=== PATIENT | female | born 1980 | race Caucasian/White ===

== ENCOUNTER 2017-11-29 22:33 | Emergency (ER) | payer SELFPAY ==
[~2017-11-29] VITALS: Ht 162.6 cm; Wt 62.6 kg
[2017-11-29 22:37] VITALS: Ht 162.6 cm; Wt 62.6 kg
[2017-11-29 23:16] LABS: BASOPHIL % 1.2 % (0-2); PLATELET COUNT 190 x10^3mcL (130-400); RED CELL DISTRIBUTION WIDTH 16.6 % (11.5-14.5)
[2017-11-29 23:36] LABS: CALCIUM 8.2 mg/dL (8.5-10.1); CARBON DIOXIDE 24.3 mmol/L (21-32); CHLORIDE SERUM 106 mmol/L (98-107); GFR1 > 60 mL/min; GLUCOSE SERUM 94 mg/dL (74-106); POTASSIUM SERUM 3.3 mmol/L (3.5-5.1); SODIUM SERUM 142 mmol/L (136-145)
[2017-11-29 23:49] LABS: ALBUMIN 3.5 g/dL (3.4-5.0); ALKALINE PHOSPHATASE 90 U/L (46-116); ALT/SGPT 52 U/L (14-59); AST/SGOT 46 U/L (15-37); BILIRUBIN TOTAL 0.2 mg/dL (0.20-1.00); T4(THYROXINE) 7.1 ug/dL (4.7-13.3); TOTAL PROTEIN, SERUM 7.3 g/dL (6.4-8.2)
[2017-11-30 00:36] VITALS: BP 107/70
== END 2017-11-30 00:52 | disposition home or self-care (01) ==
LOC: ED 22:33
PROVIDERS: Emergency Medicine
DX: I47.1 Supraventricular tachycardia (principal); D50.9 Iron deficiency anemia, unspecified; E87.6 Hypokalemia; E86.0 Dehydration; K21.9 Gastro-esophageal reflux disease without esophagitis
CPT/HCPCS: 83880

== ENCOUNTER 2018-01-13 11:05 | Emergency (ER) | payer MEDICAID ==
[~2018-01-13] VITALS: Ht 165.1 cm; Wt 59.0 kg
[2018-01-13 11:14] VITALS: Ht 165.1 cm; Wt 59.0 kg
[2018-01-13 12:12] LABS: PLATELET COUNT 207 x10^3mcL (130-400)
[2018-01-13 12:14] LABS: RED CELL DISTRIBUTION WIDTH 16.2 % (11.5-14.5); rbc morphology (normal/abnorm) ABNORMAL (NORMAL)
[2018-01-13 12:30] LABS: CALCIUM 8.9 mg/dL (8.5-10.1); CHLORIDE SERUM 106 mmol/L (98-107); CREATININE SERUM 0.9 mg/dL (0.6-1.0); GFR1 > 60 mL/min; GLUCOSE SERUM 104 mg/dL (74-106); POTASSIUM SERUM 3.6 mmol/L (3.5-5.1); SODIUM SERUM 139 mmol/L (136-145)
[2018-01-13 12:35] LABS: ALBUMIN 3.4 g/dL (3.4-5.0); ALKALINE PHOSPHATASE 84 U/L (46-116); ALT/SGPT 23 U/L (14-59); AST/SGOT 16 U/L (15-37); BILIRUBIN TOTAL 0.3 mg/dL (0.20-1.00); TOTAL PROTEIN, SERUM 6.8 g/dL (6.4-8.2)
[2018-01-13 13:34] VITALS: BP 116/79
== END 2018-01-13 13:32 | disposition home or self-care (01) ==
LOC: ED 11:05
PROVIDERS: Emergency Medicine
DX: R00.2 Palpitations (principal); R07.89 Other chest pain; K21.9 Gastro-esophageal reflux disease without esophagitis; I10 Essential (primary) hypertension
CPT/HCPCS: 36415

== ENCOUNTER 2018-01-23 09:39 | Emergency (ER) | payer MEDICAID ==
[~2018-01-23] VITALS: Ht 162.6 cm; Wt 59.0 kg
[2018-01-23 09:45] VITALS: Ht 162.6 cm; Wt 59.0 kg
[2018-01-23 10:49] LABS: BASOPHIL % 0.7 % (0-2); PLATELET COUNT 165 x10^3mcL (130-400)
[2018-01-23 10:53] LABS: RED CELL DISTRIBUTION WIDTH 16.6 % (11.5-14.5)
[2018-01-23 10:54] LABS: rbc morphology (normal/abnorm) ABNORMAL (NORMAL)
[2018-01-23 10:59] LABS: CALCIUM 8.8 mg/dL (8.5-10.1); CARBON DIOXIDE 27.4 mmol/L (21-32); CHLORIDE SERUM 104 mmol/L (98-107); CREATININE SERUM 0.9 mg/dL (0.6-1.0); GFR1 > 60 mL/min; GLUCOSE SERUM 83 mg/dL (74-106); POTASSIUM SERUM 3.5 mmol/L (3.5-5.1); SODIUM SERUM 138 mmol/L (136-145)
[2018-01-23 11:02] LABS: ALBUMIN 3.6 g/dL (3.4-5.0); ALKALINE PHOSPHATASE 86 U/L (46-116); ALT/SGPT 22 U/L (14-59); AST/SGOT 13 U/L (15-37); BILIRUBIN TOTAL 0.3 mg/dL (0.20-1.00); CHOLESTEROL 146 mg/dL (<200); LIPASE 196 IU/L (73-393); TOTAL PROTEIN, SERUM 7.4 g/dL (6.4-8.2); TRIGLYCERIDES 49 mg/dL (<150)
[2018-01-23 11:06] LABS: CHOLESTEROL/HDL RATIO 1.9; HDL CHOLESTEROL 78 mg/dL (40-60)
[2018-01-23 11:20] LABS: FREE T4 1.02 ng/dL (0.76-1.46); FREE THYROXINE INDEX 2.9 ug/dL (1.4-4.5); T3 TOTAL 1.1 ng/mL; T4(THYROXINE) 8.4 ug/dL (4.7-13.3)
[2018-01-23 11:24] LABS: AMPHETAMINE QUAL UR NONE DETECTED (NEG <=1000)
[2018-01-23 11:31] VITALS: BP 114/75
== END 2018-01-23 11:31 | disposition home or self-care (01) ==
LOC: ED 09:39
PROVIDERS: Specialist
DX: R00.2 Palpitations (principal); R06.4 Hyperventilation; I10 Essential (primary) hypertension; K21.9 Gastro-esophageal reflux disease without esophagitis; Z88.0 Allergy status to penicillin
CPT/HCPCS: 83880; 84439; J7030; Q0092

== ENCOUNTER 2018-03-06 11:57 | Emergency (ER) | payer SELFPAY ==
[~2018-03-06] VITALS: Ht 165.1 cm; Wt 59.4 kg
[2018-03-06 12:01] VITALS: Ht 165.1 cm; Wt 59.4 kg
[2018-03-06 12:54] VITALS: BP 110/77
== END 2018-03-06 12:54 | disposition home or self-care (01) ==
LOC: ED 11:57
DX: J02.9 Acute pharyngitis, unspecified (principal); R06.02 Shortness of breath; K21.9 Gastro-esophageal reflux disease without esophagitis; I10 Essential (primary) hypertension; Z88.0 Allergy status to penicillin

== ENCOUNTER 2018-05-03 11:57 | Emergency (ER) | payer SELFPAY ==
[~2018-05-03] VITALS: Ht 162.6 cm; Wt 60.8 kg
[2018-05-03 12:02] VITALS: BP 112/76; Ht 162.6 cm; Wt 60.8 kg
== END 2018-05-03 13:57 | disposition left against medical advice (07) ==
LOC: ED 11:57
DX: Z53.21 Procedure and treatment not carried out due to patient leaving prior to being seen by health care provider (principal)

== ENCOUNTER 2018-09-20 05:11 | Inpatient (IN) | payer SELFPAY ==
[~2018-09-20] VITALS: Ht 162.6 cm; Wt 58.2 kg
[2018-09-20 05:12] VITALS: Ht 162.6 cm; Wt 58.2 kg
[2018-09-20 06:07] LABS: BASOPHIL % 1.2 % (0-2); PLATELET COUNT 178 x10^3mcL (130-400)
[2018-09-20 06:13] LABS: RED CELL DISTRIBUTION WIDTH 17.6 % (11.5-14.5)
[2018-09-20 06:46] LABS: ALBUMIN 3.4 g/dL (3.4-5.0); ALKALINE PHOSPHATASE 86 U/L (46-116); ALT/SGPT 38 U/L (14-59); AST/SGOT 41 U/L (15-37); BILIRUBIN TOTAL 0.2 mg/dL (0.20-1.00); CALCIUM 8.5 mg/dL (8.5-10.1); CARBON DIOXIDE 24.4 mmol/L (21-32); CHLORIDE SERUM 104 mmol/L (98-107); FREE T4 1.15 ng/dL (0.76-1.46); GFR1 > 60 mL/min; POTASSIUM SERUM 3.1 mmol/L (3.5-5.1); SODIUM SERUM 139 mmol/L (136-145)
[2018-09-20 06:47] LABS: AMPHETAMINE QUAL UR NONE DETECTED (See below)
[2018-09-20 06:56] LABS: GLUCOSE SERUM 102 mg/dL (74-106)
[2018-09-20 08:00] LABS: microscopic required? NO
[2018-09-20 08:07] LABS: MAGNESIUM 1.9 mg/dL (1.8-2.4); PHOSPHOROUS 3.3 mg/dL (2.5-4.9)
[2018-09-20 08:15] LABS: FREE T4 1.2 ng/dL (0.76-1.46); FREE THYROXINE INDEX 3.1 ug/dL (1.4-4.5); T4(THYROXINE) 8.9 ug/dL (4.7-13.3)
[2018-09-20 08:16] LABS: UA SPECIFIC GRAVITY 1.015 (1.005-1.035); urine erythrocyte NEGATIVE (NEGATIVE)
[2018-09-20 08:20] LABS: T3 TOTAL 1.19 ng/mL
[2018-09-20] MEDS ORDERED: TOPROL XL25 MG (08:38)
[2018-09-20] MEDS ORDERED: GOOD SENSE OMEP20 MG (08:39)
[2018-09-20 09:45] VITALS: BP 125/81
[2018-09-20 16:21] VITALS: BP 112/72
[2018-09-20 20:23] VITALS: BP 151/94
[2018-09-20 20:54] VITALS: BP 108/78
[2018-09-21 05:22] VITALS: BP 105/58
[2018-09-21 06:37] LABS: BASOPHIL % 0.9 % (0-2); PLATELET COUNT 194 x10^3mcL (130-400)
[2018-09-21 06:41] LABS: CALCIUM 8.2 mg/dL (8.5-10.1); CARBON DIOXIDE 25.6 mmol/L (21-32); CHLORIDE SERUM 111 mmol/L (98-107); CREATININE SERUM 0.8 mg/dL (0.6-1.0); GFR1 > 60 mL/min; GLUCOSE SERUM 90 mg/dL (74-106); MAGNESIUM 2.1 mg/dL (1.8-2.4); PHOSPHOROUS 3.3 mg/dL (2.5-4.9); POTASSIUM SERUM 3.8 mmol/L (3.5-5.1); SODIUM SERUM 146 mmol/L (136-145)
[2018-09-21 06:58] LABS: TOTAL IRON BINDING CAPACITY 353 ug/dL (250-450)
[2018-09-21 06:59] LABS: IRON 24 ug/dL (50-170)
[2018-09-21 07:12] LABS: RED CELL DISTRIBUTION WIDTH 18.1 % (11.5-14.5)
[2018-09-21 08:22] VITALS: BP 121/76
[2018-09-21 10:42] VITALS: BP 104/65
[2018-09-21] MEDS ORDERED: LOP50 PO (10:51)
[2018-09-21 11:36] VITALS: BP 104/65
[2018-09-21] MEDS ORDERED: FERG PO (13:29)
[2018-09-21] MEDS ORDERED: VITC PO (13:29)
[2018-09-21 14:39] LABS: TOTAL IRON BINDING CAPACITY 399 ug/dL (250-450)
[2018-09-21 14:41] LABS: RED BLOOD CELLS 4.94 M/mm3 (4.10-5.10)
[2018-09-21 14:48] LABS: IRON 19 ug/dL (50-170)
== END 2018-09-21 15:06 | disposition home or self-care (01) | DRG 310 ==
LOC: ED 05:11 → DU 07:38
PROVIDERS: Emergency Medicine; Internal Medicine
DX: I47.1 Supraventricular tachycardia (principal); I10 Essential (primary) hypertension; E87.6 Hypokalemia; Z88.0 Allergy status to penicillin; K21.9 Gastro-esophageal reflux disease without esophagitis; D50.9 Iron deficiency anemia, unspecified
CPT/HCPCS: 83880; 84439; J3475; J7030; Q0092

== ENCOUNTER 2018-10-12 23:13 | Emergency (ER) | payer SELFPAY ==
[~2018-10-12] VITALS: Ht 162.6 cm; Wt 59.9 kg
[~2018-10-12 23:13] MED LIST: FERG PO; GOOD SENSE OMEP20 MG; LOP50 PO; TOPROL XL25 MG; VITC PO
[2018-10-12 23:21] VITALS: Ht 162.6 cm; Wt 59.9 kg
[2018-10-13 01:09] VITALS: BP 135/93
== END 2018-10-13 01:09 | disposition home or self-care (01) ==
LOC: ED 23:13
DX: S01.01XA Laceration without foreign body of scalp, initial encounter (principal); K21.9 Gastro-esophageal reflux disease without esophagitis; I10 Essential (primary) hypertension; Z98.890 Other specified postprocedural states; Z88.0 Allergy status to penicillin; Y00.XXXA Assault by blunt object, initial encounter; Y93.89 Activity, other specified; Y92.89 Other specified places as the place of occurrence of the external cause; Y99.8 Other external cause status
CPT/HCPCS: 90715; J2001

== ENCOUNTER 2018-10-15 11:32 | Emergency (ER) | payer SELFPAY ==
[~2018-10-15] VITALS: Ht 162.6 cm; Wt 59.0 kg
[2018-10-15 11:35] VITALS: Ht 162.6 cm; Wt 59.0 kg
[2018-10-15 12:07] VITALS: BP 118/69
== END 2018-10-15 12:07 | disposition home or self-care (01) ==
LOC: ED 11:32
DX: S01.01XD Laceration without foreign body of scalp, subsequent encounter (principal); I10 Essential (primary) hypertension; K21.9 Gastro-esophageal reflux disease without esophagitis; Z86.2 Personal history of diseases of the blood and blood-forming organs and certain disorders involving the immune mechanism; W22.8XXD Striking against or struck by other objects, subsequent encounter

== ENCOUNTER 2018-10-20 12:31 | Emergency (ER) | payer SELFPAY ==
[~2018-10-20] VITALS: Ht 162.6 cm; Wt 59.0 kg
[2018-10-20 12:35] VITALS: BP 115/77; Ht 162.6 cm; Wt 59.0 kg
== END 2018-10-20 14:40 | disposition left against medical advice (07) ==
LOC: ED 12:31
DX: Z53.21 Procedure and treatment not carried out due to patient leaving prior to being seen by health care provider (principal)

== ENCOUNTER 2018-10-21 12:46 | Emergency (ER) | payer SELFPAY ==
[~2018-10-21] VITALS: Ht 162.6 cm; Wt 59.9 kg
[2018-10-21 12:55] VITALS: BP 121/73; Ht 162.6 cm; Wt 59.9 kg
== END 2018-10-21 13:15 | disposition home or self-care (01) ==
LOC: ED 12:46
DX: S01.01XD Laceration without foreign body of scalp, subsequent encounter (principal); I10 Essential (primary) hypertension; K21.9 Gastro-esophageal reflux disease without esophagitis; I47.1 Supraventricular tachycardia; Z88.0 Allergy status to penicillin; Z86.2 Personal history of diseases of the blood and blood-forming organs and certain disorders involving the immune mechanism; X58.XXXD Exposure to other specified factors, subsequent encounter

== ENCOUNTER 2018-11-08 02:55 | Emergency (ER) | payer SELFPAY ==
[2018-11-08 03:35] VITALS: BP 112/60
== END 2018-11-08 03:35 | disposition home or self-care (01) ==
LOC: ED 02:55
DX: R00.2 Palpitations (principal); I10 Essential (primary) hypertension; Z88.0 Allergy status to penicillin; Z86.2 Personal history of diseases of the blood and blood-forming organs and certain disorders involving the immune mechanism; K21.9 Gastro-esophageal reflux disease without esophagitis

== ENCOUNTER 2018-12-09 01:31 | Emergency (ER) | payer SELFPAY ==
[~2018-12-09] VITALS: Ht 165.1 cm; Wt 59.0 kg
[2018-12-09 01:34] VITALS: Ht 165.1 cm; Wt 59.0 kg
[2018-12-09 01:59] LABS: PLATELET COUNT 156 x10^3mcL (130-400)
[2018-12-09 02:09] LABS: CALCIUM 8.6 mg/dL (8.5-10.1); CARBON DIOXIDE 28.6 mmol/L (21-32); CHLORIDE SERUM 105 mmol/L (98-107); CREATININE SERUM 0.9 mg/dL (0.6-1.0); GFR1 > 60 mL/min; GLUCOSE SERUM 110 mg/dL (74-106); POTASSIUM SERUM 3.3 mmol/L (3.5-5.1); SODIUM SERUM 142 mmol/L (136-145)
[2018-12-09 02:13] LABS: RED CELL DISTRIBUTION WIDTH 19.7 % (11.5-14.5)
[2018-12-09 02:21] LABS: ALBUMIN 3.5 g/dL (3.4-5.0); ALKALINE PHOSPHATASE 106 U/L (46-116); ALT/SGPT 34 U/L (14-59); AST/SGOT 24 U/L (15-37); BILIRUBIN TOTAL 0.19 mg/dL (0.20-1.00); T4(THYROXINE) 8.3 ug/dL (4.7-13.3); TOTAL PROTEIN, SERUM 7.3 g/dL (6.4-8.2)
[2018-12-09 04:28] LABS: AMPHETAMINE QUAL UR NONE DETECTED (See below)
[2018-12-09 04:30] VITALS: BP 114/74
== END 2018-12-09 04:30 | disposition home or self-care (01) ==
LOC: ED 01:31
PROVIDERS: Emergency Medicine
DX: R00.2 Palpitations (principal); E87.6 Hypokalemia; I10 Essential (primary) hypertension; K21.9 Gastro-esophageal reflux disease without esophagitis; Z86.2 Personal history of diseases of the blood and blood-forming organs and certain disorders involving the immune mechanism; Z88.0 Allergy status to penicillin
CPT/HCPCS: 36415

== ENCOUNTER 2019-01-08 13:51 | Emergency (ER) | payer OTHER ==
[~2019-01-08] VITALS: Ht 162.6 cm; Wt 57.2 kg
[2019-01-08 13:59] VITALS: Ht 162.6 cm; Wt 57.2 kg
[2019-01-08 15:36] VITALS: BP 117/60
== END 2019-01-08 15:36 | disposition home or self-care (01) ==
LOC: ED 13:51
DX: I47.1 Supraventricular tachycardia (principal)

== ENCOUNTER 2019-01-13 18:04 | Emergency (ER) | payer OTHER ==
[~2019-01-13] VITALS: Ht 162.6 cm; Wt 57.3 kg
[2019-01-13 18:18] VITALS: Ht 162.6 cm; Wt 57.3 kg
[2019-01-13 20:01] LABS: BASOPHIL % 0.6 % (0-2); PLATELET COUNT 158 x10^3mcL (130-400); RED CELL DISTRIBUTION WIDTH 15.1 % (11.5-14.5)
[2019-01-13 20:08] LABS: CALCIUM 9.2 mg/dL (8.5-10.1); CARBON DIOXIDE 27.6 mmol/L (21-32); CHLORIDE SERUM 100 mmol/L (98-107); CREATININE SERUM 0.9 mg/dL (0.6-1.0); GFR1 > 60 mL/min; GLUCOSE SERUM 94 mg/dL (74-106); POTASSIUM SERUM 4.4 mmol/L (3.5-5.1); SODIUM SERUM 135 mmol/L (136-145)
[2019-01-13 20:12] LABS: ALBUMIN 3.4 g/dL (3.4-5.0); ALKALINE PHOSPHATASE 104 U/L (46-116); ALT/SGPT 26 U/L (14-59); AMYLASE 62 U/L (25-115); AST/SGOT 18 U/L (15-37); BILIRUBIN TOTAL 0.2 mg/dL (0.20-1.00); LIPASE 151 IU/L (73-393)
[2019-01-13 21:22] VITALS: BP 117/86
== END 2019-01-13 21:23 | disposition home or self-care (01) ==
LOC: ED 18:04
DX: A08.4 Viral intestinal infection, unspecified (principal); K21.9 Gastro-esophageal reflux disease without esophagitis; I47.1 Supraventricular tachycardia; Z88.0 Allergy status to penicillin; Z86.2 Personal history of diseases of the blood and blood-forming organs and certain disorders involving the immune mechanism
CPT/HCPCS: 36415

== ENCOUNTER 2019-03-27 19:46 | Emergency (ER) | payer OTHER ==
[~2019-03-27] VITALS: Ht 162.6 cm; Wt 58.1 kg
[2019-03-27 19:53] VITALS: Ht 162.6 cm; Wt 58.1 kg
[2019-03-27 20:41] LABS: BASOPHIL % 1.2 % (0-2); PLATELET COUNT 213 x10^3mcL (130-400)
[2019-03-27 20:44] LABS: RED CELL DISTRIBUTION WIDTH 17.7 % (11.5-14.5)
[2019-03-27 20:53] LABS: CALCIUM 8.3 mg/dL (8.5-10.1); CARBON DIOXIDE 27.4 mmol/L (21-32); CHLORIDE SERUM 107 mmol/L (98-107); CREATININE SERUM 0.9 mg/dL (0.6-1.0); GFR1 > 60 mL/min; GLUCOSE SERUM 90 mg/dL (74-106); POTASSIUM SERUM 3.9 mmol/L (3.5-5.1); SODIUM SERUM 140 mmol/L (136-145)
[2019-03-27 20:56] LABS: ALKALINE PHOSPHATASE 91 U/L (46-116); ALT/SGPT 14 U/L (14-59); AST/SGOT 8 U/L (15-37); BILIRUBIN TOTAL 0.22 mg/dL (0.20-1.00); LIPASE 172 IU/L (73-393); MAGNESIUM 2.2 mg/dL (1.8-2.4); PHOSPHOROUS 2.6 mg/dL (2.5-4.9)
[2019-03-27 20:57] LABS: ALBUMIN 3.2 g/dL (3.4-5.0)
[2019-03-27 21:49] VITALS: BP 101/62
== END 2019-03-27 21:49 | disposition home or self-care (01) ==
LOC: ED 19:46
PROVIDERS: Emergency Medicine
DX: R00.2 Palpitations (principal); R07.89 Other chest pain; Z88.0 Allergy status to penicillin; K21.9 Gastro-esophageal reflux disease without esophagitis; Z86.2 Personal history of diseases of the blood and blood-forming organs and certain disorders involving the immune mechanism; Z98.890 Other specified postprocedural states
CPT/HCPCS: 36415; Q0092

== ENCOUNTER 2019-05-11 04:14 | Emergency (ER) | payer SELFPAY ==
[~2019-05-11] VITALS: Ht 162.6 cm; Wt 58.1 kg
[2019-05-11 04:18] VITALS: Ht 162.6 cm; Wt 58.1 kg
[2019-05-11 04:48] LABS: BASOPHIL % 1.2 % (0-2); PLATELET COUNT 157 x10^3mcL (130-400); RED CELL DISTRIBUTION WIDTH 15.6 % (11.5-14.5)
[2019-05-11 04:57] LABS: CALCIUM 8.9 mg/dL (8.5-10.1); CARBON DIOXIDE 24.2 mmol/L (21-32); CHLORIDE SERUM 107 mmol/L (98-107); CREATININE SERUM 0.9 mg/dL (0.6-1.0); GFR1 > 60 mL/min; GLUCOSE SERUM 98 mg/dL (74-106); POTASSIUM SERUM 3.5 mmol/L (3.5-5.1); SODIUM SERUM 141 mmol/L (136-145)
[2019-05-11 05:10] LABS: ALBUMIN 3.4 g/dL (3.4-5.0); ALKALINE PHOSPHATASE 86 U/L (46-116); ALT/SGPT 19 U/L (14-59); AST/SGOT 11 U/L (15-37); BILIRUBIN TOTAL 0.25 mg/dL (0.20-1.00); FREE T4 1.09 ng/dL (0.76-1.46); LIPASE 141 IU/L (73-393); MAGNESIUM 2.1 mg/dL (1.8-2.4); TOTAL PROTEIN, SERUM 6.9 g/dL (6.4-8.2)
[2019-05-11 06:50] VITALS: BP 94/59
== END 2019-05-11 06:50 | disposition home or self-care (01) ==
LOC: ED 04:14
PROVIDERS: Emergency Medicine
DX: R00.2 Palpitations (principal); K21.9 Gastro-esophageal reflux disease without esophagitis; I47.1 Supraventricular tachycardia; Z88.0 Allergy status to penicillin; Z86.2 Personal history of diseases of the blood and blood-forming organs and certain disorders involving the immune mechanism
CPT/HCPCS: 36415; 84439; Q0092

== ENCOUNTER 2019-05-22 23:51 | Emergency (ER) | payer SELFPAY ==
[~2019-05-22] VITALS: Ht 160 cm; Wt 63.5 kg
[2019-05-22 23:57] VITALS: Ht 160 cm; Wt 63.5 kg
[2019-05-23 01:13] VITALS: BP 130/82
== END 2019-05-23 01:13 | disposition left against medical advice (07) ==
LOC: ED 23:51
DX: Z53.21 Procedure and treatment not carried out due to patient leaving prior to being seen by health care provider (principal)

== ENCOUNTER 2019-05-26 02:35 | Emergency (ER) | payer SELFPAY ==
[~2019-05-26] VITALS: Ht 162.6 cm; Wt 59.0 kg
[2019-05-26 02:39] VITALS: Ht 162.6 cm; Wt 59.0 kg
[2019-05-26 04:10] LABS: PLATELET COUNT 162 x10^3mcL (130-400)
[2019-05-26 04:25] LABS: CALCIUM 8.8 mg/dL (8.5-10.1); CARBON DIOXIDE 26.1 mmol/L (21-32); CHLORIDE SERUM 109 mmol/L (98-107); GFR1 > 60 mL/min; GLUCOSE SERUM 109 mg/dL (74-106); POTASSIUM SERUM 3.7 mmol/L (3.5-5.1); SODIUM SERUM 143 mmol/L (136-145)
[2019-05-26 04:31] LABS: ALKALINE PHOSPHATASE 99 U/L (46-116); ALT/SGPT 37 U/L (14-59); AST/SGOT 41 U/L (15-37); BILIRUBIN TOTAL 0.16 mg/dL (0.20-1.00); TOTAL PROTEIN, SERUM 6.9 g/dL (6.4-8.2)
[2019-05-26 04:32] LABS: ALBUMIN 3.2 g/dL (3.4-5.0)
[2019-05-26 04:34] LABS: RED CELL DISTRIBUTION WIDTH 15.8 % (11.5-14.5)
[2019-05-26 06:07] VITALS: BP 106/73
== END 2019-05-26 06:07 | disposition home or self-care (01) ==
LOC: ED 02:35
PROVIDERS: Emergency Medicine
DX: I47.1 Supraventricular tachycardia (principal); K21.9 Gastro-esophageal reflux disease without esophagitis; Z88.0 Allergy status to penicillin
CPT/HCPCS: 36415

== ENCOUNTER 2019-07-06 01:38 | Emergency (ER) | payer SELFPAY ==
[~2019-07-06] VITALS: Ht 162.6 cm; Wt 59.0 kg
[2019-07-06 01:45] VITALS: Ht 162.6 cm; Wt 59.0 kg
[2019-07-06 02:35] LABS: BASOPHIL % 0.9 % (0-2); PLATELET COUNT 158 x10^3mcL (130-400)
[2019-07-06 02:43] LABS: RED CELL DISTRIBUTION WIDTH 15.9 % (11.5-14.5)
[2019-07-06 02:49] LABS: CALCIUM 8.3 mg/dL (8.5-10.1); CARBON DIOXIDE 27.3 mmol/L (21-32); CHLORIDE SERUM 107 mmol/L (98-107); CREATININE SERUM 0.9 mg/dL (0.6-1.0); GFR1 > 60 mL/min; GLUCOSE SERUM 97 mg/dL (74-106); POTASSIUM SERUM 3.6 mmol/L (3.5-5.1); SODIUM SERUM 143 mmol/L (136-145)
[2019-07-06 02:51] LABS: ALBUMIN 3.4 g/dL (3.4-5.0); ALKALINE PHOSPHATASE 82 U/L (46-116); ALT/SGPT 17 U/L (14-59); AST/SGOT 9 U/L (15-37); BILIRUBIN TOTAL 0.26 mg/dL (0.20-1.00); MAGNESIUM 2.2 mg/dL (1.8-2.4); PHOSPHOROUS 3.1 mg/dL (2.5-4.9); TOTAL PROTEIN, SERUM 6.6 g/dL (6.4-8.2)
[2019-07-06 03:33] VITALS: BP 105/70
== END 2019-07-06 03:50 | disposition home or self-care (01) ==
LOC: ED 01:38
PROVIDERS: Emergency Medicine
DX: R00.2 Palpitations (principal); Z88.0 Allergy status to penicillin
CPT/HCPCS: 36415; J7030

== ENCOUNTER 2019-08-13 23:30 | Emergency (ER) | payer SELFPAY ==
[~2019-08-13] VITALS: Ht 154.9 cm; Wt 57.6 kg
[2019-08-13 23:34] VITALS: Ht 154.9 cm; Wt 57.6 kg
[2019-08-14 00:16] LABS: BASOPHIL % 0.7 % (0-2); PLATELET COUNT 177 x10^3mcL (130-400)
[2019-08-14 00:21] LABS: RED CELL DISTRIBUTION WIDTH 16.7 % (11.5-14.5)
[2019-08-14 00:28] LABS: CALCIUM 8.8 mg/dL (8.5-10.1); CARBON DIOXIDE 24.9 mmol/L (21-32); CHLORIDE SERUM 106 mmol/L (98-107); CREATININE SERUM 0.9 mg/dL (0.6-1.0); GFR1 > 60 mL/min; GLUCOSE SERUM 98 mg/dL (74-106); POTASSIUM SERUM 3.7 mmol/L (3.5-5.1); SODIUM SERUM 139 mmol/L (136-145)
[2019-08-14 00:33] LABS: ALBUMIN 3.6 g/dL (3.4-5.0); ALKALINE PHOSPHATASE 99 U/L (46-116); ALT/SGPT 30 U/L (14-59); AST/SGOT 28 U/L (15-37); BILIRUBIN TOTAL 0.3 mg/dL (0.20-1.00); LIPASE 220 IU/L (73-393); TOTAL PROTEIN, SERUM 7.5 g/dL (6.4-8.2)
[2019-08-14 01:39] VITALS: BP 105/69
== END 2019-08-14 01:39 | disposition home or self-care (01) ==
LOC: ED 23:30
PROVIDERS: Emergency Medicine
DX: R07.89 Other chest pain (principal); K21.9 Gastro-esophageal reflux disease without esophagitis; I47.1 Supraventricular tachycardia; Z88.0 Allergy status to penicillin; Z86.2 Personal history of diseases of the blood and blood-forming organs and certain disorders involving the immune mechanism
CPT/HCPCS: 36415; Q0092

== ENCOUNTER 2020-06-13 18:58 | Emergency (ER) | payer OTHER ==
[~2020-06-13] VITALS: Ht 162.6 cm; Wt 60.8 kg
[2020-06-13 19:05] VITALS: Ht 162.6 cm; Wt 60.8 kg
[2020-06-13 20:22] LABS: CALCIUM 8.6 mg/dL (8.5-10.1); CHLORIDE SERUM 106 mmol/L (98-107); GFR1 > 60 mL/min; GLUCOSE SERUM 91 mg/dL (74-106); POTASSIUM SERUM 3.7 mmol/L (3.5-5.1); SODIUM SERUM 141 mmol/L (136-145)
[2020-06-13 20:26] LABS: BASOPHIL % 1.3 % (0-2); PLATELET COUNT 231 x10^3mcL (130-400)
[2020-06-13 20:29] LABS: ALBUMIN 3.6 g/dL (3.4-5.0); ALKALINE PHOSPHATASE 74 U/L (46-116); ALT/SGPT 20 U/L (14-59); AST/SGOT 14 U/L (15-37); BILIRUBIN TOTAL 0.4 mg/dL (0.20-1.00); TOTAL PROTEIN, SERUM 7.1 g/dL (6.4-8.2)
[2020-06-13 20:30] LABS: RED CELL DISTRIBUTION WIDTH 17.3 % (11.5-14.5)
[2020-06-13 22:05] VITALS: BP 97/60
== END 2020-06-13 22:05 | disposition home or self-care (01) ==
LOC: ED 18:58
PROVIDERS: Emergency Medicine
DX: R00.2 Palpitations (principal); R07.89 Other chest pain; K21.9 Gastro-esophageal reflux disease without esophagitis; Z88.0 Allergy status to penicillin; Z86.2 Personal history of diseases of the blood and blood-forming organs and certain disorders involving the immune mechanism; Z98.890 Other specified postprocedural states
CPT/HCPCS: Q0092